=== PATIENT | male | born 1935 | race Hispanic/Latino ===

== ENCOUNTER 2016-11-26 10:51 | Outpatient (CLI) | payer MEDICARE, OTHER ==
--- NOTE | 2016-11-26 12:01 | Cat Scan Report ---
CT scan of head without contrast: History: DGE 45.9 mesothelioma. Findings: Ventricles are normal in size and midline in location. 3 mm focal area of low attenuation left basal ganglia suggestive chronic lacunar infarct. Normal brainstem and cerebellum. No extra-axial fluid collection. No evidence of acute ischemia or hemorrhage. Normal sinuses and mastoid air cells. Impression: No acute intracranial abnormality. No mass.
== END 2016-11-26 10:52 | disposition home or self-care (01) ==
LOC: CT 10:51
PROVIDERS: ATTEND Internal Medicine Cardiovascular Disease
DX: C45.9 Mesothelioma, unspecified (principal)
CPT/HCPCS: 70450

== ENCOUNTER 2019-06-27 11:08 | Emergency (ER) | payer MEDICARE, OTHER ==
--- NOTE | 2019-06-27 12:00 | Event Note ---
ED Screening Note Date of service: 06/27/19 Time: 11:56 ED Screening Note: 83 y o male presents elevated blood pressure at home s/p open heart surgery 2 months for bypass due to blockage pt states pacemaker placed last year cardiology states pacemaker wire loose and needs to surgery in August for repair on elliquis This initial assessment/diagnostic orders/clinical plan/treatment(s) is/are subject to change based on patients health status, clinical progression and re- assessment by fellow clinical providers in the ED. Further treatment and workup at subsequent clinical providers discretion. Patient/guardian urged not to elope from the ED as their condition may be serious if not clinically assessed and managed. Initial orders include: labs ekg main eval
[2019-06-27 12:46] LABS: Basophils # (Auto) 0.1 K/mm3 (0.0-0.1); Basophils % (Auto) 0.7 % (0.0-1.8); Eosinophils # (Auto) 0.2 K/mm3 (0.0-0.4); Eosinophils % (Auto) 1.9 % (0.0-4.3); Hematocrit 36.9 % (35.5-45.6); Lymphocytes # (Auto) 2.7 K/mm3 (1.2-5.4); Lymphocytes % (Auto) 22.6 % (13.4-35.0); Mean Corpuscular HGB Conc 33 % (32-34); Mean Corpuscular Volume 83 fl (84-94); Monocytes # (Auto) 0.8 K/mm3 (0.0-0.8); Monocytes % (Auto) 6.7 % (0.0-7.3); Platelet Count 300 K/mm3 (140-440); Red Blood Count 4.43 M/mm3 (3.65-5.03); Red Cell Distribution Width 16.5 % (13.2-15.2)
[2019-06-27 13:15] LABS: BUN/Creatinine Ratio 18; Blood Urea Nitrogen 11 mg/dL (9-20); Calcium 9.8 mg/dL (8.4-10.2); Hemolysis Index 62
--- NOTE | 2019-06-27 14:55 | Emergency Department Report ---
ED General Adult HPI - General Chief complaint: High BP Stated complaint: HBP Time Seen by Provider: 06/27/19 13:29 Source: patient, family, RN notes reviewed Mode of arrival: Ambulatory Limitations: No Limitations - History of Present Illness Initial comments: Primary care Dr.: Dr Vargas Cardiology: Dr Dixon Past medical history: Gout, lower extremity DVT, hypertension, on chronic systemic anticoagulation This is a pleasant 83-year-old gentleman who is not known to this provider previously. He presents to the ER today with complaint of painless hypertension. He reports his blood pressure at home was 200/120. He was not having physical pain. He is not having physical pain now. He denies additional complaints. He endorses compliance with his medications. He indicates no headache, neck pain, chest pain, abdominal pain, shortness of breath, vomiting blood, defecating blood. Currently, his blood pressures in the 160s. He endors es no physical complaints at this time. -: Sudden Severity scale (0 -10): 0 Consistency: now resolved Improves with: none Worsens with: none - Related Data Allergies Allergy/AdvReac Type Severity Reaction Status Date / Time Penicillins Allergy Dizziness Unverified 11/26/16 10:52 ED Review of Systems ROS: Stated complaint: HBP Other details as noted in HPI Constitutional: denies: fever Eyes: denies: eye discharge ENT: denies: congestion Respiratory: denies: cough Cardiovascular: denies: chest pain Gastrointestinal: denies: abdominal pain, hematemesis, melena, hematochezia Genitourinary: denies: dysuria Musculoskeletal: denies: back pain, arthralgia, myalgia Neurological: denies: weakness Hematological/Lymphatic: denies: easy bleeding ED Past Medical Hx - Past Medical History Previous Medical History?: Yes Hx Hypertension: Yes Hx Deep Vein Thrombosis: Yes Additional medical history: Gout, LLL DVT - Surgical History Past Surgical History?: Yes Hx Open Heart Surgery: Yes (CABG) Hx Pacemaker: Yes Additional Surgical History: HEMORRHOIDS - Social History Smoking Status: Never Smoker Substance Use Type: None ED Physical Exam - General Limitations: No Limitations General appearance: alert, anxious - Head Head exam: Present: atraumatic, normocephalic - Eye Eye exam: Present: normal appearance, EOMI. Absent: nystagmus - ENT ENT exam: Present: normal exam, normal orophraynx, mucous membranes moist, normal external ear exam - Neck Neck exam: Present: normal inspection, full ROM. Absent: tenderness, meningismus - Respiratory Respiratory exam: Present: normal lung sounds bilaterally. Absent: respiratory distress - Cardiovascular Cardiovascular Exam: Present: normal rhythm, bradycardia, normal heart sounds. Absent: tachycardia, irregular rhythm, systolic murmur, diastolic murmur, rubs, gallop - GI/Abdominal GI/Abdominal exam: Present: soft. Absent: distended, tenderness, guarding, rebound, rigid, pulsatile mass - Rectal Rectal exam: Present: deferred - Extremities Exam Extremities exam: Present: normal inspection, full ROM, other (2+ pulses noted i n the bilateral upper, lower extremities. There is no long bone tenderness. Musculoskeletal compartments are soft. The pelvis is stable.). Absent: pedal edema, calf tenderness - Back Exam Back exam: Present: normal inspection, full ROM. Absent: tenderness, CVA tenderness (R), CVA tenderness (L), paraspinal tenderness, vertebral tenderness - Neurological Exam Neurological exam: Present: alert, other (there is no facial droop. The tongue is midline. Extraocular movements are intact bilaterally. Patient speaking in full complete sentences. Shoulder shrug is intact bilaterally. Hearing is grossly intact bilaterally. Visual acuity intact to finger counting and color perception at a close distance. 5/5 strength 4 extremities. Sensation intact to light touch in 4 extremities.). Absent: motor sensory deficit - Psychiatric Psychiatric exam: Present: anxious - Skin Skin exam: Present: warm, dry, intact, normal color. Absent: rash ED Course Vital Signs 06/27/19 06/27/19 11:53 13:46 Temperature 97.2 F L Pulse Rate 57 L 53 L Respiratory 18 11 L Rate Blood Pressure 181/64 Blood Pressure 185/62 [Left] O2 Sat by Pulse 98 98 Oximetry ED Medical Decision Making - Lab Data Result diagrams: 06/27/19 12:26 06/27/19 12:26 Vital Signs 06/27/19 06/27/19 11:53 13:46 Temperature 97.2 F L Pulse Rate 57 L 53 L Respiratory 18 11 L Rate Blood Pressure 181/64 Blood Pressure 185/62 [Left] O2 Sat by Pulse 98 98 Oximetry Lab Results 06/27/19 06/27/19 Range/Units 12:26 12:26 WBC 11.7 H (4.5-11.0) K/mm3 RBC 4.43 (3.65-5.03) M/mm3 Hgb 12.0 (11.8-15.2) gm/dl Hct 36.9 (35.5-45.6) % MCV 83 L (84-94) fl MCH 27 L (28-32) pg MCHC 33 (32-34) % RDW 16.5 H (13.2-15.2) % Plt Count 300 (140-440) K/mm3 Lymph % (Auto) 22.6 (13.4-35.0) % [place] % (Auto) 6.7 (0.0-7.3) % Eos % (Auto) 1.9 (0.0-4.3) % Baso % (Auto) 0.7 (0.0-1.8) % Lymph # 2.7 (1.2-5.4) K/mm3 [place] # 0.8 (0.0-0.8) K/mm3 Eos # 0.2 (0.0-0.4) K/mm3 Baso # 0.1 (0.0-0.1) K/mm3 Seg Neutrophils % 68.1 (40.0-70.0) % Seg Neutrophils # 8.0 H (1.8-7.7) K/mm3 Sodium 144 (137-145) mmol/L Potassium 4.4 (3.6-5.0) mmol/L Chloride 103.1 (98-107) mmol/L Carbon Dioxide 26 (22-30) mmol/L Anion Gap 19 mmol/L BUN 11 (9-20) mg/dL Creatinine 0.6 L (0.8-1.5) mg/dL Estimated GFR > 60 ml/min BUN/Creatinine Ratio 18 % Glucose 133 H (75-100) mg/dL Calcium 9.8 (8.4-10.2) mg/dL - EKG Data -: EKG Interpreted by Ma EKG shows normal: sinus rhythm Rate: bradycardia - EKG Data When compared to previous EKG there are: previous EKG unavailable 06/27/19 14:53 There is no prior EKG available for comparison. The EKG is a sinus rhythm, bradycardic, left axis deviation, right bundle branch block, borderline left anterior fascicular block, the QTC is within normal limits, the EKG is abnormal, there is no prior for comparison, the EKG is not consistent with ST elevation myocardial infarction. - Medical Decision Making Differential diagnosis, including not limited to: Hypertension, general medical screening examination Assessment and plan: 83-year-old gentleman with a complaint of hypertension which is painless, now mostly resolved, with no other medical complaints. Elevated blood pressure is reviewed and appreciated; please reference the [employer] clinical policy on hypertension which is not acutely symptom at her. Laboratory studies and EKG were ordered prior to my personal evaluation. He is resting comfortably in his stretcher and appears somewhat anxious, but otherwise is not in any acute distress. His physical examination is benign. He does not appear to have an emergent medical condition at this time. We discussed follow-up with his outpatient physicians. 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 He indicates no new or different medication changes. He can be discharged to follow-up with either outpatient primary care and/or cardiology for his presumed chronically elevated blood pressure. We discussed return precautions any verbalizes understanding. Critical care attestation.: If time is entered above; I have spent that time in minutes in the direct care of this critically ill patient, excluding procedure time. ED Disposition Clinical Impression: Hypertension Disposition: DC-01 TO HOME OR SELFCARE Is pt being admited?: No Does the pt Need Aspirin: No Condition: Stable Instructions: Hypertension (ED) Additional Instructions: Continue current outpatient medications. Avoid consumption of caffeinated beverages, energy drinks and stimulants. Participate in physical activity as tolerated. Follow-up with your primary care doctor or shag truck driver within the next 4-6 weeks. Return to emergency room right away with new, worsened, different symptoms, or symptoms not present on the initial emergency room evaluation Referrals: QUIQUE CAMILO MD [Staff Physician] - as needed BRAYDEN VARGAS MD [Staff Physician] - as needed
[2019-06-27 15:05] VITALS: BP 153/51
== END 2019-06-27 15:15 | disposition home or self-care (01) ==
LOC: ED 11:08
DX: I10 Essential (primary) hypertension (principal); Z86.718 Personal history of other venous thrombosis and embolism; Z98.890 Other specified postprocedural states; Z95.0 Presence of cardiac pacemaker; Z88.0 Allergy status to penicillin
CPT/HCPCS: 36415; 80048; 85025; 93005; 93010

== ENCOUNTER 2020-08-09 14:48 | Emergency (ER) | payer MEDICARE, OTHER ==
--- NOTE | 2020-08-09 16:11 | Event Note ---
ED Screening Note Date of service: 08/09/20 Time: 16:10 ED Screening Note: Patient complains of possible left shoulder dislocation and right wrist pain after a fall today This initial assessment/diagnostic orders/clinical plan/treatment(s) is/are subject to change based on patients health status, clinical progression and re- assessment by fellow clinical providers in the ED. Further treatment and workup at subsequent clinical providers discretion. Patient/guardian urged not to elope from the ED as their condition may be serious if not clinically assessed and managed. Initial orders include: xr
--- NOTE | 2020-08-09 16:46 | XRay Report ---
LEFT SHOULDER 3 VIEW(S) INDICATION / CLINICAL INFORMATION: pain after fall COMPARISON: None available. FINDINGS: BONES / JOINT(S): Slight cortical discontinuity at the junction of the humeral head and surgical neck . This suggests an acute nondisplaced fracture. No dislocation. Moderate degenerative change. SOFT TISSUES: Mild edema about the shoulder. ADDITIONAL FINDINGS: None. IMPRESSION: 1. Findings concerning for acute nondisplaced fracture of the proximal humerus surgical neck. Conside r further evaluation as warranted. Signer Name: Abdirashid Bermeo MD Signed: 08/09/2020 4:42 PM Workstation Name: [id number]
--- NOTE | 2020-08-09 16:50 | XRay Report ---
RIGHT WRIST 3 VIEW(S) INDICATION / CLINICAL INFORMATION: pain after fall COMPARISON: None available. FINDINGS: BONES / JOINT(S): Osteopenia. Tiny osseous fragments just adjacent to the dorsal aspect of the carpal bones suggests acute minimally displaced triquetral fracture. Mild diffuse degenerative change worst at the first and second CMC joints. SOFT TISSUES: No significant abnormality. ADDITIONAL FINDINGS: None. IMPRESSION: 1. Findings concerning for acute minimally displaced triquetral fracture as described above. Signer Name: Abdirashid Bermeo MD Signed: 08/09/2020 4:45 PM Workstation Name: [id number]
[2020-08-09] MEDS ORDERED: oxyCODONE /ACETAMINOPHEN 5-325MG TAB PO ONE (17:22)
--- NOTE | 2020-08-09 18:31 | Emergency Department Report ---
HPI - General Chief Complaint: Fall Time Seen by Provider: 08/09/20 16:03 - HPI HPI: This is an 85-year-old male presents to the emergency department with a complaint of left shoulder and right wrist pain after he fell down 2 stairs earlier in the day. He says that he first fell into the wall and then down onto the floor. He denies hitting his head or any loss of consciousness. He denies any headache, neck pain, back pain. Pain worsens with any movement of the wrist or shoulder. He has not taken anything for symptoms prior to presentation. He lists the shoulder pain as 10 out of 10 in intensity. Patient has a past medical history of hypertension, coronary artery disease with previous CABG, and a pacemaker in place. He is right-hand dominant. ED Past Medical Hx - Past Medical History Previous Medical History?: Yes Hx Hypertension: Yes Hx Deep Vein Thrombosis: Yes Additional medical history: Gout, LLL DVT - Surgical History Past Surgical History?: Yes Hx Open Heart Surgery: Yes (CABG) Hx Pacemaker: Yes Additional Surgical History: HEMORRHOIDS - Social History Smoking Status: Never Smoker Substance Use Type: None - Medications Home Medications: Home Medications Medication Instructions Recorded Confirmed Last Taken Type HYDROcodone/APAP 5-325 [Raywick 1 each PO Q6HR PRN #12 tablet 08/09/20 Unknown Rx 5/325] ED Review of Systems ROS: Stated complaint: LT ARM INJURY (FALL) Other details as noted in HPI Comment: All other systems reviewed and negative Constitutional: denies: chills, fever Eyes: denies: eye pain, vision change ENT: denies: ear pain, throat pain Respiratory: denies: orthopnea, shortness of breath Cardiovascular: denies: chest pain, palpitations Gastrointestinal: denies: abdominal pain, vomiting Genitourinary: denies: dysuria, discharge Musculoskeletal: joint swelling, arthralgia. denies: back pain Skin: denies: rash, lesions Neurological: denies: headache, numbness, paresthesias Physical Exam - Physical Exam Vital Signs: Vital Signs 08/09/20 16:00 Temperature 98.5 F Pulse Rate 60 Respiratory 20 Rate Blood Pressure 188/57 O2 Sat by Pulse 96 Oximetry Physical Exam: GENERAL: The patient is well-developed well-nourished. HENT: Normocephalic. Atraumatic. Patient has moist mucous membranes. EYES: Extraocular motions are intact. NECK: Supple. Trachea is midline. CHEST/LUNGS: Clear to auscultation. There is no respiratory distress noted. HEART/CARDIOVASCULAR: Regular. There is no tachycardia. There is no murmur. ABDOMEN: Abdomen is soft, nontender. Patient has normal bowel sounds. SKIN: Skin is warm and dry. NEURO: The patient is awake, alert, and oriented. The patient is cooperative. Normal speech. MUSCULOSKELETAL: There is tenderness to palpation to the left shoulder and right wrist. Radial pulse +2/4 and capillary refill less than 2 seconds to the bilat eral upper extremities. Decreased range of motion of the left upper extremity secondary to shoulder pain. The patient has full range of motion of the right wrist but any movement does cause increased pain. ED Course Vital Signs 08/09/20 16:00 Temperature 98.5 F Pulse Rate 60 Respiratory 20 Rate Blood Pressure 188/57 O2 Sat by Pulse 96 Oximetry - Consultations Consultation #1: 08/09/20 18:29 I spoke to the orthopedist on-call who agrees with the plan for a right short arm volar splint, and says the left arm can be placed in a sling, and the patient can follow-up outpatient. ED Medical Decision Making - Radiology Data Radiology results: image reviewed interpreted by me: X-ray of the left shoulder shows a nondisplaced fracture of the humeral neck. X-ray of the right wrist shows nondisplaced fracture of the triquetrum - Medical Decision Making Patient had a fall down 2 stairs and first hit the wall before hitting the ground. He denies hitting his head or any loss of consciousness. His main complaints are left shoulder pain and right wrist pain. X-rays were taken of each of these areas and it shows a humeral neck fracture and a right triquetrum fracture. I spoke with the orthopedist who agrees with outpatient follow-up and has recommended a right short volar splint for the wrist fracture, and a sling for the humeral neck fracture. Critical Care Time: No Critical care attestation.: If time is entered above; I have spent that time in minutes in the direct care of this critically ill patient, excluding procedure time. ED Disposition Clinical Impression: Hypertension Qualifiers: Hypertension type: essential hypertension Qualified Code(s): I10 - Essential (primary) hypertension Fracture of neck of left humerus Qualifiers: Encounter type: initial encounter Fracture type: closed Qualified Code(s): S42.212A - Unspecified displaced fracture of surgical neck of left humerus, initial encounter for closed fracture Triquetral fracture Qualifiers: Encounter type: initial encounter Fracture type: closed Fracture alignment: nondisplaced Laterality: right Qualified Code(s): S62.114A - Nondisplaced fracture of triquetrum [cuneiform] bone, right wrist, initial encounter for closed fracture Disposition: TO HOME OR SELFCARE Is pt being admited?: No Condition: Stable Instructions: Wrist Splint, Adult, [id number], Humerus Fracture Treated With Immobilization, Wrist Fracture Treated With Immobilization, [id number], Hypertension, Adult, Hypertension (ED) Additional Instructions: Remain in the splint and shoulder sling until follow-up with the orthopedist. Make sure to take all of your medications as prescribed, including your blood pressure medication. Stay away from foods that are high in salt and caffeinated products. Keep a blood pressure log. You have been prescribed a medication that is sedating and therefore should not be taken prior to driving, working, and responsible for children and in no way should be mixed with alcohol of any quantity. Return to the emergency department with any worsening of your symptoms, new or concerning symptoms not addressed during this current emergency department visit, or with any acute distress. Prescriptions: HYDROcodone/APAP 5-325 [Ray[place] 5/325] 1 each PO Q6HR PRN #12 tablet PRN Reason: Pain Referrals: BRAYDEN MAYER MD [Primary Care Provider] - 3-5 Days LUISA SANTOS MD [Staff Physician] - 3-5 Days [facility] [Provider Group] - 3-5 Days Time of Disposition: 18:32
[2020-08-09 20:01] VITALS: BP 125/54
== END 2020-08-09 19:50 | disposition home or self-care (01) ==
LOC: ED 14:48
DX: S42.292A Other displaced fracture of upper end of left humerus, initial encounter for closed fracture (principal); S62.114A Nondisplaced fracture of triquetrum [cuneiform] bone, right wrist, initial encounter for closed fracture; I10 Essential (primary) hypertension; Z98.890 Other specified postprocedural states; Z79.899 Other long term (current) drug therapy; Z88.0 Allergy status to penicillin; W10.9XXA Fall (on) (from) unspecified stairs and steps, initial encounter; Y93.89 Activity, other specified; Y92.89 Other specified places as the place of occurrence of the external cause; Y99.8 Other external cause status